=== PATIENT | female | born 1965 | race Caucasian/White ===

== ENCOUNTER 2021-07-18 05:29 | Emergency (ER) | payer MEDICAID ==
[~2021-07-18] VITALS: Ht 149.9 cm; Wt 90.0 kg
[2021-07-18] MEDS ORDERED: OXYCODONE HCL 5MG TABLET PO ONE (08:15)
[2021-07-18 08:46] LABS: CLARITY URINE CLEAR (CLEAR); COLOR URINE YELLOW (YELLOW); KETONES URINE NEGATIVE (NEGATIVE); LEUKOCYTE ESTERASE URINE NEGATIVE (NEGATIVE); NITRITE URINE NEGATIVE (NEGATIVE); OCCULT BLOOD URINE 2+ (NEGATIVE); PROTEIN URINE NEGATIVE (NEGATIVE); SPECIFIC GRAVITY URINE 1.017 (1.005-1.030); UROBILINOGEN URINE 0.2 E.U./dL (0.2-1.0)
[2021-07-18 09:27] VITALS: BP 123/80
[2021-07-18 09:32] LABS: BASOPHILS % 0.3 % (0.0-2.0); EOSINOPHILS % 2.4 % (0.0-5.0); HEMATOCRIT. 40.3 % (36.0-48.0); HEMOGLOBIN. 13.3 g/dL (12.0-16.0); LYMPHOCYTES % 17.8 % (20.0-50.0); MEAN CORPUSCULAR HEMOGLOBIN 27.4 pg (28.0-32.0); MEAN PLATELET VOLUME 9.7 fl (7.4-10.4); MONOCYTES % 5.9 % (2.0-8.0); NEUTROPHILS % 73.6 % (40.0-76.0); PLATELET 199 x1000/uL (130-400); RED BLOOD CELL COUNT 4.85 mill/uL (4.2-5.4); RED CELL DISTRIBUTION WIDTH 13.7 % (11.6-14.6)
[2021-07-18 09:38] LABS: CHLORIDE 111 mEq/L (98-107)
[2021-07-18] MEDS ORDERED: OXYC-662 MT (10:06)
== END 2021-07-18 15:00 ==
LOC: ER 05:29
DX: R10.11 Right upper quadrant pain (principal); I10 Essential (primary) hypertension; Z98.890 Other specified postprocedural states
CPT/HCPCS: 36415; 71046; 76705; 80053; 81003; 85025; 99285